=== PATIENT | female | born 1960 | race Caucasian/White ===

== ENCOUNTER → 2017-10-05 | Outpatient (CLI) | payer MEDICARE, OTHER ==
--- NOTE | 2017-10-05 23:17 | MR ---
EXAMINATION TYPE: MR tspine/lspine wo con DATE OF EXAM: 10/05/2017 COMPARISON: None HISTORY: Pt Fell 1996, chronic back pain TECHNIQUE: Multiplanar, multisequence imaging of the thoracic spine and lumbar spine is performed wit hout IV contrast. FINDINGS: The thoracic vertebra have fairly normal alignment. There is anterior wedging of T7 with 50 % loss of height. Signal pattern is normal and this is an old fracture. Thoracic spinal cord has norm al signal pattern. There is no edema. There is no thoracic spinal stenosis. There is no thoracic para spinal mass. There is no focal bony destructive process in the thoracic spine. Cervical vertebra have normal alignment. There is a posterior disc bulge at C5-6. There is no cervical spinal stenosis. The lumbar vertebra have normal alignment. Disc spaces are fairly normal. There is posterior disc her niation at L3-4 into the spinal canal towards the right side. There is developmentally adequate canal and no spinal stenosis. There is no compression fracture. Lumbar nerve roots appear normal. The neur oforamina are fairly well-maintained. There is small posterior disc bulge at L5-S1. There is no lumba r compression fracture. There is no lumbar paraspinal mass. IMPRESSION: Old T7 compression fracture. No acute fracture. L3-4 posterior central and right-sided lumbar disc herniation without significant impingement on the neural elements. Small posterior disc bulge at L5-S1. No spinal stenosis. No lumbar fracture.
== END | disposition home or self-care (01) ==
LOC: RADMRIMAIN 21:19
PROVIDERS: ATTEND Nurse Practitioner Acute Care
DX: M51.27 Other intervertebral disc displacement, lumbosacral region (principal); Z88.0 Allergy status to penicillin; Z88.1 Allergy status to other antibiotic agents; Z87.81 Personal history of (healed) traumatic fracture
CPT/HCPCS: 72146; 72148